=== PATIENT | male | born 1950 | race Caucasian/White ===

== ENCOUNTER 2017-09-15 20:17 | Observation (INO) ==
[2017-09-15] MEDS ORDERED: Levofloxacin 750 MG/150 ML 750 MG/150 ML BAG IVPB ONE (20:44)
--- NOTE | 2017-09-15 21:05 | Emergency Department Note ---
START Narrative - START START: I examined this patient and my medical decision-making was reviewed with the Resident Physician. I agree with the documented findings, disposition and treatment plan as described except to the extent set forth below. 66 year old male presents to the ED by PV from [facility] urgent care where they diagnsoed him with pnueoina and an initial pulse ox of 88% wiht a history of COPD without need for supplental oxygen. Patient is also flu (+) and has wheezes heard on exam. He is febrile on exam. WE will do lab work and breathing treatemnts and assess respiratroy status
[2017-09-15 21:16] LABS: Basophils % 0.2 %; Eosinophils % 0.2 %; Hematocrit 42.7 % (37.5-50.1); Hemoglobin 14.5 g/dL (12.9-16.9); Immature Granulocytes % 0.6 % (0-4); Lymphocytes # 1.2 K/mcL (0.6-4.6); Lymphocytes % 9.4 %; Mean Corpuscular Volume 85.4 fL (83.0-100.0); Mean Platelet Volume 10.4 fL (9.4-12.4); Monocytes # 1.2 K/mcL (0.0-1.3); Monocytes % 9.7 %; Neutrophils # 9.9 K/mcL (1.6-8.9); Platelet Count 129 K/mcL (140-400); Red Cell Distribution Width 13.8 % (11.5-14.5); Segmented Neutrophils % 79.9 %
--- NOTE | 2017-09-15 21:24 | Emergency Department Note ---
Disposition Clinical Impression: Hypoxemia, Hyponatremia Pneumonia Qualifiers: Pneumonia type: due to unspecified organism Laterality: left Lung location: lower lobe of lung Qualified Code(s): J18.1 - Lobar pneumonia, unspecified organism Disposition: Admitted As Inpatient Condition: Fair Time of Disposition: 23:34 SOB HPI - General Chief Complaint: ED Shortness of Breath/Dyspnea Stated Complaint: Pneumonia Time Seen by Provider: 09/15/17 20:27 Source: patient Limitations: no limitations Nursing Notes Reviewed: Yes Vital Signs Reviewed: Yes - History of Present Illness Patient is a 66-year-old male who presents to [facility] ED with a chief complaint of pneumonia. He was sent over by the urgent care with left lower lobe pneumonia. States he has been feeling weak and sick for the last 3 days. Past medical history significant for prostate cancer. Patient is a 40 year smoker. Denies any nausea, vomiting, fever or chills. He has felt hot at times. No chest pain, abdominal pain. He has had some discomfort with urination. No problems with bowel movements. Pt Subjective Complaint: shortness of breath, cough Onset (ago): day(s) Context: recent illness Severity: moderate Consistency/Duration: gradually worsening Improves with: nothing Worsens with: nothing Known history of: COPD Associated symptoms: Reports: fever, cough. Denies: chest pain, nausea/vomiting , abdominal pain Treatment prior to arrival: none - Related Data Home oxygen amount: none Home Medications Medication Instructions Recorded Confirmed Aspirin [Adult Low Dose Aspirin EC] 81 mg PO DAILY 05/25/15 09/15/17 Doxazosin Mesylate [Cardura Xl] 8 mg PO DAILY 05/25/15 09/15/17 Insulin ASPART [NovoLOG] 5 - 10 unit SQ TIDWM 05/25/15 09/15/17 Insulin DETEMIR [Levemir] 50 unit SQ DAILY 05/25/15 09/15/17 Omeprazole [PriLOSEC] 40 mg PO DAILY 05/25/15 09/15/17 Hydrochlorothiazide 50 mg PO DAILY 08/22/15 09/15/17 Losartan 25 mg PO DAILY 08/22/15 09/15/17 Fluticasone/Salmeterol [Advair 1 each IH DAILY 09/02/17 09/15/17 250-50 Diskus] Allergies Allergy/AdvReac Type Severity Reaction Status Date / Time No Known Allergies Allergy Verified 09/15/17 20:19 All systems ED: reviewed and negative except as stated. Past Medical History - Past Medical History Attestation: Yes The following information was validated with the patient. Source: patient Medical history: Reports: COPD, diabetes Surgical history: Reports: orthopedic, other, vasectomy Psychiatric history: Reports: no psych history - Social History Smoking Status: Former smoker Smokeless Tobacco Status: No Alcohol use: Reports: occasionally Drug use: Reports: none Physical Exam - General Limitations: no limitations General appearance: alert, in no apparent distress - Head Head exam: atraumatic, normocephalic, normal inspection - Eye Eye exam: Present: normal appearance, EOMI - ENT ENT exam: normal exam, normal oropharynx, mucous membranes moist - Neck Neck exam: Present: normal inspection, full ROM, trachea midline - Chest Chest inspection: Present: normal inspection, symmetric chest wall rise - Respiratory Respiratory exam: Present: other (decreased breath sounds b/l) - Cardiovascular Cardiovascular exam: Present: regular rate, normal rhythm, normal heart sounds - Abdominal Exam Abdominal exam: Present: soft, Non-Tender. Absent: tenderness, distention, guarding, rebound, rigidity - Extremities Exam Extremities exam: Present: normal inspection, full ROM. Absent: tenderness, pedal edema - Back Exam Back exam: Present: normal inspection, full ROM. Absent: tenderness - Neurological Exam Neurological exam: Present: alert, oriented X3 - Psychiatric Psychiatric exam: Present: normal affect, normal mood - Skin Skin exam: Present: warm, dry, intact, normal color Course Course Narrative: Patient seen and examined. Diagnosed with flu and pneumonia. We will start with on Levaquin. We will also get lab work and blood cultures. Patient was saturating 88% on room air when he arrived. Does not have any home oxygen. - Reevaluation(s) Reevaluation #1: Labwork shows mild leukocytosis. Examined Chest x-ray from the urgent care which shows left lower lobe pneumonia. I discussed with hospitalist who has accepted patient for admission. Time: 23:31 Vital Signs Temperature 100.5 F H 09/15/17 20:19 Pulse Rate 84 09/15/17 20:19 Respiratory Rate 22 09/15/17 20:19 Blood Pressure 157/78 09/15/17 20:19 O2 Sat by Pulse Oximetry 92 09/15/17 20:19 Temperature 100.5 F H 09/15/17 20:19 Pulse Rate 78 09/15/17 23:17 Respiratory Rate 20 09/15/17 23:17 Blood Pressure 148/81 09/15/17 23:17 O2 Sat by Pulse Oximetry 97 09/15/17 23:17 Oxygen Delivery Oxygen Delivery Room Air Shortness of Breath/Dyspnea - Medical Records Medical records reviewed: Yes I reviewed the patient's medical records. - Lab Data Lab results reviewed: Yes I reviewed the patient's lab results. Result diagrams: 09/15/17 21:00 09/15/17 21:00 Lab Results 09/15/17 09/15/17 09/15/17 Range/Units 21:00 21:00 21:00 WBC 12.4 H (4.3-11.1) K/mcL RBC 5.00 (4.19-5.50) M/mcL Hgb 14.5 (12.9-16.9) g/dL Hct 42.7 (37.5-50.1) % MCV 85.4 (83.0-100.0) fL MCH 29.0 (28.0-33.3) pg MCHC 34.0 (31.6-35.5) g/dL RDW 13.8 (11.5-14.5) % Plt Count 129 L (140-400) K/mcL MPV 10.4 (9.4-12.4) fL Immature Gran % 0.6 (0-4) % Seg Neutrophils % 79.9 % Lymphocytes % 9.4 % Monocytes % 9.7 % Eosinophils % 0.2 % Basophils % 0.2 % Neutrophils # 9.9 H (1.6-8.9) K/mcL Lymphocytes # 1.2 (0.6-4.6) K/mcL Monocytes # 1.2 (0.0-1.3) K/mcL Eosinophils # 0.0 (0.0-0.6) K/mcL Basophils # 0.0 (0.0-0.2) K/mcL Sodium 129 L (136-145) mEq/L Potassium 3.6 (3.5-5.1) mEq/L Chloride 94 L (98-107) mEq/L Carbon Dioxide 28 (23-29) mEq/L BUN 31 H (8-23) mg/dL Creatinine 1.22 (0.70-1.30) mg/dL Est GFR ( Amer) > 60 (> 60) Est GFR (Non-Af Amer) 59 L (> 60) BUN/Creatinine Ratio 25 (6-26) Glucose 193 H (70-105) mg/dL Calculated Osmolality 280 (280-300) Lactic Acid 1.2 (0.5-2.2) mmol/L Calcium 9.6 (8.6-10.3) mg/dL Troponin I (< 0.04) ng/mL B-Natriuretic Peptide (Less than 100) pg/mL Urine Color (Yellow) Urine Clarity (Clear) Urine pH (5.0-8.0) pH Units Ur Specific Randolph (1.010-1.025) Urine Protein (Neg-Trace) mg/dL Urine Glucose (UA) (Normal) mg/dL Urine Ketones (Negative) mg/dL Urine Blood (Negative) Urine Nitrite (Negative) Urine Bilirubin (Negative) Urine Urobilinogen (Normal) mg/dL Ur Leukocyte Esterase (Negative) Urine Microscopic RBC (0-3) per hpf Urine Microscopic WBC (0-3) per hpf Ur Squamous Epith Cells (None-Few) per lpf Ur Transition Epith Cell (None-Few) per hpf Ur Renal Epithelial Cell (None-Few) per hpf Urine Bacteria (None-Few) per hpf Hyaline Casts (None-Few) per lpf Urine Mucus (Few) Ur Culture Indicated? (NO) 09/15/17 09/15/17 09/15/17 Range/Units 21:00 21:00 21:15 WBC (4.3-11.1) K/mcL RBC (4.19-5.50) M/mcL Hgb (12.9-16.9) g/dL Hct (37.5-50.1) % MCV (83.0-100.0) fL MCH (28.0-33.3) pg MCHC (31.6-35.5) g/dL RDW (11.5-14.5) % Plt Count (140-400) K/mcL MPV (9.4-12.4) fL Immature Gran % (0-4) % Seg Neutrophils % % Lymphocytes % % Monocytes % % Eosinophils % % Basophils % % Neutrophils # (1.6-8.9) K/mcL Lymphocytes # (0.6-4.6) K/mcL Monocytes # (0.0-1.3) K/mcL Eosinophils # (0.0-0.6) K/mcL Basophils # (0.0-0.2) K/mcL Sodium (136-145) mEq/L Potassium (3.5-5.1) mEq/L Chloride (98-107) mEq/L Carbon Dioxide (23-29) mEq/L BUN (8-23) mg/dL Creatinine (0.70-1.30) mg/dL Est GFR ( Amer) (> 60) Est GFR (Non-Af Amer) (> 60) BUN/Creatinine Ratio (6-26) Glucose (70-105) mg/dL Calculated Osmolality (280-300) Lactic Acid (0.5-2.2) mmol/L Calcium (8.6-10.3) mg/dL Troponin I < 0.03 (< 0.04) ng/mL B-Natriuretic Peptide 28 (Less than 100) pg/mL Urine Color Dark Yellow (Yellow) Urine Clarity Slightly Hazy (Clear) Urine pH 6.0 (5.0-8.0) pH Units Ur Specific Randolph 1.028 H (1.010-1.025) Urine Protein 100 H (Neg-Trace) mg/dL Urine Glucose (UA) Normal (Normal) mg/dL Urine Ketones 15 H (Negative) mg/dL Urine Blood Moderate H (Negative) Urine Nitrite Negative (Negative) Urine Bilirubin Small H (Negative) Urine Urobilinogen Normal (Normal) mg/dL Ur Leukocyte Esterase Small H (Negative) Urine Microscopic RBC 15-30 H (0-3) per hpf Urine Microscopic WBC 30-50 H (0-3) per hpf Ur Squamous Epith Cells Many H (None-Few) per lpf Ur Transition Epith Cell Few (None-Few) per hpf Ur Renal Epithelial Cell Few (None-Few) per hpf Urine Bacteria None Seen (None-Few) per hpf Hyaline Casts None Seen (None-Few) per lpf Urine Mucus Moderate H (Few) Ur Culture Indicated? NO. (NO) - Radiology Data Radiology results reviewed: Yes I reviewed the patient's radiology results. - EKG Data EKG attestation: Yes I reviewed and interpreted this EKG. EKG results narrative: EKG done at 2054 shows normal sinus rhythm with a rate of [address] elevation or depression. Right bundle branch block present. Left axis deviation.
[2017-09-15 21:37] LABS: BUN/Creatinine Ratio 25 (6-26); Blood Urea Nitrogen 31 mg/dL (8-23); Calcium 9.6 mg/dL (8.6-10.3); Carbon Dioxide 28 mEq/L (23-29); Chloride 94 mEq/L (98-107); Glucose 193 mg/dL (70-105); Osmolality,Calculated 280 (280-300); Potassium 3.6 mEq/L (3.5-5.1); Sodium 129 mEq/L (136-145); eGFR For African Americans > 60 (> 60); eGFR For Non-African Americans 59 (> 60)
[2017-09-15 21:38] LABS: Bilirubin,Urine Small (Negative); Blood,Urine Moderate (Negative); Color,Urine Dark Yellow (Yellow); Glucose,Urine (UA) Normal (Normal); Ketones,Urine 15 mg/dL (Negative); Leukocyte Esterase,Urine Small (Negative); Nitrite,Urine Negative (Negative); Protein,Urine 100 mg/dL (Neg-Trace); Specific Gravity,Urine 1.028 (1.010-1.025); Urobilinogen,Urine Normal (Normal)
[2017-09-15 21:40] LABS: Bacteria,Urine None Seen per hpf (None-Few); Hyaline Casts,Urine None Seen per lpf (None-Few); RBC,Urine 15-30 per hpf (0-3); Squamous Epithelial Cell,Urine Many per lpf (None-Few); WBC,Urine 30-50 per hpf (0-3)
[2017-09-15 21:42] LABS: Clarity,Urine Slightly Hazy (Clear)
[2017-09-15] MEDS ORDERED: Ipratropium/Albuterol Neb 3 ML IH ONE (21:48)
[2017-09-15 21:58] LABS: Mucus,Urine Moderate (Few); Renal Epithelial Cells,Urine Few per hpf (None-Few); Transitional Epi Cells,Urine Few per hpf (None-Few)
[2017-09-16] MEDS ORDERED: Ibuprofen 600 MG TABLET PO PRN (00:34)
--- NOTE | 2017-09-16 01:58 | Internal Med History&Physical ---
<Melina Herrera - Last Filed: 09/16/17 06:38> Date of Encounter: 09/16/17 Time of Encounter: 01:00 Assessment and Plan (1) Pneumonia Current visit: Yes Status: Acute No signs of sepsis, afebrile, vital signs stable, and saturating 95% on 2L NC. Flu-like symptoms of fever, fatigue, myalgias, nonproductive cough, decreased appetite x3 days. CXR done at urgent care 09/15/17 airspace disease in LLL suspicious for PNA; no pulmonary edema or pleural effusions. Received a dose of Augmentin and Zithromax at urgent care; first dose of Levaquin given in ED. Increased risk for complications given h/o DM and COPD. No hospitalizations within last 90 days, no recent antibiotic use. Elevated WBC count @ 12.4. - Trend WBC count - Continue empiric Levaquin for now - Rapid influenza A/B ordered - Blood cultures sent - Sputum gram stain and culture ordered Qualifiers: Pneumonia type: due to unspecified organism Laterality: left Lung location: lower lobe of lung Qualified Code(s): J18.1 - Lobar pneumonia, unspecified organism (2) COPD (chronic obstructive pulmonary disease) Current visit: Yes Status: Chronic Known COPD hx. Not on home oxygen. Prescribed daily Advair at home; has not taken Advair in last 3 days. Currently on 2L supplemental oxygen NC with SpO2 95 %. No respiratory distress. Decreased lung sounds bilateral bases; no wheezing, rhonchi, or rales. Consider possibility of COPD exacerbation. - Symbicort daily - Duonebs PRN - Continue supplemental oxygen for now, plan to titrate off when pt begins to improve clinically Qualifiers: COPD type: unspecified COPD Qualified Code(s): J44.9 - Chronic obstructive pulmonary disease, unspecified (3) Hyponatremia Current visit: Yes Status: Acute Sodium 129 on admission. Suspect d/t poor appetite over last 3 days in combination with HCTZ he takes at home. - Diabetic diet ordered - Recheck level in morning - Hold HCTZ - Replace with PO sodium chloride tab (4) Diabetes mellitus Current visit: Yes Status: Chronic Known h/o DM on insulin therapy. Serum glucose elevated on arrival @ 192. - Low dose SSI - Diabetic diet - POC glucose checks ACHS Qualifiers: Diabetes mellitus type: type 2 Diabetes mellitus complication status: with hyperglycemia Diabetes mellitus rat exterminator insulin use: with custodial use Qualified Code(s): E11.65 - Type 2 diabetes mellitus with hyperglycemia; Z79.4 - longterm (current) use of insulin; Z79.4 - rat exterminator (current) use of insulin ; Z79.4 - longterm (current) use of insulin; Z79.4 - longterm (current) use of insulin (5) Hypoxemia Current visit: Yes Status: Resolved Saturating in low 90's on room air, dropping down to 88% before giving supplemental oxygen. Most likely influenced by h/o COPD, not using inhaler for several days, and acute respiratory illness. Resolved with 2L oxygen and been saturating around 95% since. - Titrate off supplemental oxygen when pt begins to improve clinically - Monitor pulse ox (6) Malignant neoplasm of prostate Current visit: Yes Status: Chronic Pt of Dr. Mcfarlane, last seen 09/02/17. Documentation of that visit states no signs of local recurrent or metastatic disease Completed prostate-only radiotherapy in 2013. Pt to follow up at cancer center in 9 months. (7) BPH (benign prostatic hyperplasia) Current visit: Yes Status: Chronic Takes doxazosin at home. Qualifiers: Lower urinary tract symptom presence: symptoms present Lower urinary tract symptom detail: nocturia Qualified Code(s): N40.1 - Benign prostatic hyperplasia with lower urinary tract symptoms; R35.1 - Nocturia; R35.1 - Nocturia (8) DVT prophylaxis Current visit: Yes Status: Acute Encourage ambulation. SubQ heparin 5,000 untis Q12H. No h/o DVT. Internal Medicine - H&P: HPI Chief complaint: Short of breath History of present illness: Mr. Ferguson is a 66 year old male who presented to the ED after visiting an urgent care on 09/15/17 for what he thought was sinusitis. He has felt sick and like he couldn't "get enough air" x 3 days. Admits to fever, but denies chills, diaphoresis, chest pain. At urgent care, he was told he had influenza and PNA. CXR was done at urgent care and LLL PNA was seen. He admits to nonproductive cough x3 days and a little bit of wheezing. He states he was given antibiotics while at urgent care and doesn't know the name. Pt denies sick contacts and had his flu shot this year. Pt also reports dark urine today and some burning discomfort with urination x1 day, he states discomfort with urination has resolved and denies pyuria or hematuria. Pt attributes his dark urine to his poor appetite since feeling sick, admits to nausea and denies emesis, abdominal pain, change in bowel movements, bloody stools. PMH includes COPD without home oxygen, DC, DM requiring insulin, and prostate cancer. PSH includes LHC approx 2000 (no stents or balloons), cervical spine surgery around 1999. In the ED, reportedly had SpO2 88% on arrival. Vital signs were significant for Tmax 100.5 F. Basic labwork shows leukocytosis 12.4, hyponatremia 129, and hypochloremia 94. UA showed urine specific gravity increased, no nitrites, small amount leukocyte esterase, moderate amount of mucus, no hyaline casts. He was given a dose of Levaquin and a duoneb treatment. Past Med Surg Social Fam HX - Past Medical History Medical history: COPD, diabetes Psychiatric history: no psych history - Past Surgical History Surgical History: orthopedic, other, vasectomy - Social History Smoking Status: Former smoker Smokeless Tobacco Status: No Alcohol use: occasionally Drug use: none - Family History Mother Living Status: Still Living Hx Family Cardiac Disorders: Yes (Pacer) Hx Family Endocrine Disorder: Yes (DM) Brother Living Status: Still Living Hx Family Cardiac Disorders: Yes (CABG) Internal Medicine - H&P: Meds Aspirin [Adult Low Dose Aspirin EC] 81 mg PO DAILY 05/25/15 [History] Doxazosin Mesylate [Cardura Xl] 8 mg PO DAILY 05/25/15 [History] Insulin ASPART [NovoLOG] 5 - 10 unit SQ TIDWM 05/25/15 [History] Insulin DETEMIR [Levemir] 45 - 50 unit SQ DAILY 05/25/15 [History] Omeprazole [PriLOSEC] 40 mg PO DAILY 05/25/15 [History] Losartan [Cozaar] 25 mg PO DAILY 08/22/15 [History] hydroCHLOROthiazide [Hydrochlorothiazide] 50 mg PO DAILY 08/22/15 [History] Fluticasone/Salmeterol [Advair 250-50 Diskus] 1 each IH DAILY 09/02/17 [History] 3 Allergy/AdvReac Type Severity Reaction Status Date / Time No Known Allergies Allergy Verified 09/15/17 20:19 All Systems PM: A 10-system review of systems was performed and is negative for pertinent findings except as documented above in the HPI. - Constitutional Constitutional: as per HPI - Cardiovascular Cardiovascular ROS IM: as per HPI - Respiratory Respiratory: as per HPI - Gastrointestinal Gastrointestinal: as per HPI - Genitourinary Genitourinary ROS male: as per HPI - Constitutional Vitals: Temp Pulse Resp BP Pulse Ox 99.4 F 77 18 138/74 95 09/15/17 23:45 09/15/17 23:45 09/15/17 23:45 09/15/17 23:45 09/15/17 23:45 General appearance: Present: A&O X 3, no acute distress, answers questions appropriately - Head Head exam: Present: atraumatic, normocephalic - Eye Eye exam: Present: EOMI, sclera anicteric - Neck Neck exam general surgery: Present: trachea midline - Respiratory Respiratory exam: Present: decreased breath sounds (bilateral bases), CTAB. Absent: accessory muscle use, rales, respiratory distress, rhonchi, stridor, wheezes - Cardiovascular Cardiovascular exam: Present: RRR, +S1, +S2. Absent: diastolic murmur, systolic murmur - GI/Abdominal GI/Abdominal exam: Present: normal bowel sounds, soft. Absent: tenderness - Extremities Exam Extremities exam: Present: warm. Absent: cyanotic, pedal edema Additional comments: DP pulses 2+ - Neurological Exam Neurological exam: Present: alert, oriented X3, no focal deficits Internal Med - H&P Results - Labs CBC & Chem 7: 09/16/17 04:24 09/16/17 04:24 <Quirino Daily T - Last Filed: 09/17/17 06:53> Date of Encounter: 09/17/17 Internal Medicine - H&P: HPI History of present illness: Mr. Ferguson is a 66 year old male All Systems PM: A 10-system review of systems was performed and is negative for pertinent findings except as documented above in the HPI. - Constitutional Vitals: Temp Pulse Resp BP Pulse Ox 97.8 F 58 14 147/78 96 09/17/17 03:52 09/17/17 03:52 09/17/17 03:52 09/17/17 03:52 09/17/17 03:52 Internal Med - H&P Results - Labs CBC & Chem 7: 09/17/17 04:05 09/17/17 04:05 Labs: Short CBC 09/17/17 Range/Units 04:05 WBC 4.4 D (4.3-11.1) K/mcL Hgb 11.8 L (12.9-16.9) g/dL Hct 34.3 L (37.5-50.1) % Plt Count 113 L (140-400) K/mcL Neutrophils # 2.1 (1.6-8.9) K/mcL BMP 09/17/17 04:05 Sodium 134 L Potassium 3.6 Chloride 101 Carbon Dioxide 26 BUN 18 Creatinine 0.86 Glucose 156 H Calcium 8.7 - Attending Attestation The patient was independently examined and available records reviewed. Agree with the resident's A&P
[2017-09-16] MEDS ORDERED: Naloxone 0.4 MG/ML INJ IVP PRN (02:08)
[2017-09-16] MEDS ORDERED: Ipratropium/Albuterol Neb 3 ML IH PRN (02:11)
[2017-09-16] MEDS ORDERED: Ondansetron 4 MG/2 ML VIAL IVP PRN (02:12)
[2017-09-16] MEDS ORDERED: Dextrose Gel 15 GM/37.5 ML TUBE PO PRN ×2 (02:26)
[2017-09-16] MEDS ORDERED: D5% in Water 1,000 ML IVC PRN (02:26)
[2017-09-16] MEDS ORDERED: *HR* Dextrose 50 % in Water (Syg) 50 ML SYRINGE IVP PRN (02:26)
[2017-09-16] MEDS: 0.9 % Sodium Chloride 1,000 ML IVC SCH ×2 (04:20→17:49)
[2017-09-16 05:36] LABS: BUN/Creatinine Ratio 30 (6-26); Blood Urea Nitrogen 34 mg/dL (8-23); Carbon Dioxide 25 mEq/L (23-29); Chloride 96 mEq/L (98-107); Glucose 176 mg/dL (70-105); Osmolality,Calculated 284 (280-300); Potassium 3.5 mEq/L (3.5-5.1); Sodium 131 mEq/L (136-145); eGFR For African Americans > 60 (> 60); eGFR For Non-African Americans > 60 (> 60)
[2017-09-16 05:48] LABS: Basophils % 0.1 %; Eosinophils % 0.1 %; Hematocrit 36.6 % (37.5-50.1); Hemoglobin 12.6 g/dL (12.9-16.9); Immature Granulocytes % 0.4 % (0-4); Lymphocytes # 1.5 K/mcL (0.6-4.6); Lymphocytes % 13.4 %; Mean Corpuscular HGB Conc 34.4 g/dL (31.6-35.5); Mean Corpuscular Volume 84.1 fL (83.0-100.0); Mean Platelet Volume 11.1 fL (9.4-12.4); Monocytes # 1.6 K/mcL (0.0-1.3); Monocytes % 13.9 %; Neutrophils # 8.2 K/mcL (1.6-8.9); Platelet Count 118 K/mcL (140-400); Red Blood Count 4.35 M/mcL (4.19-5.50); Red Cell Distribution Width 13.9 % (11.5-14.5); Segmented Neutrophils % 72.1 %
[2017-09-16] MEDS: Insulin LISPRO 300 UNITS/3 ML VIAL SQ SCH ×4 (08:33→20:15)
[2017-09-16] MEDS: Budesonide/Formoterol 80/4.5 MDI IH SCH (10:28)
--- NOTE | 2017-09-16 18:24 | Event Note ---
Date of Encounter: 09/16/17 Time of Encounter: 18:23 Admitted with cough shortness of breath and fever. X-ray done in urgent care and was consistent with infiltrate on the left lower lobe. Room air SaO2 was 90 -91%. He is on 2 L/m oxygen now. Today he is feeling much better. Cough is improving. Denies any chest pain. On Levaquin. Cultures are pending. Sodium has improved from 129-131. He is on IV fluid. Plan to continue. Overall clinically improving. Reassess his condition tomorrow regarding oxygenation, sodium level.
[2017-09-16] MEDS: Levofloxacin 750 MG/150 ML 750 MG/150 ML BAG IVPB SCH (20:19)
[2017-09-17 04:34] LABS: Basophils % 0.5 %; Eosinophils # 0.1 K/mcL (0.0-0.6); Eosinophils % 1.1 %; Hematocrit 34.3 % (37.5-50.1); Hemoglobin 11.8 g/dL (12.9-16.9); Immature Granulocytes % 0.7 % (0-4); Lymphocytes # 1.4 K/mcL (0.6-4.6); Mean Corpuscular HGB Conc 34.4 g/dL (31.6-35.5); Mean Corpuscular Hemoglobin 29.1 pg (28.0-33.3); Mean Corpuscular Volume 84.5 fL (83.0-100.0); Mean Platelet Volume 10.7 fL (9.4-12.4); Monocytes # 0.8 K/mcL (0.0-1.3); Monocytes % 18.3 %; Neutrophils # 2.1 K/mcL (1.6-8.9); Platelet Count 113 K/mcL (140-400); Red Blood Count 4.06 M/mcL (4.19-5.50); Red Cell Distribution Width 13.6 % (11.5-14.5); Segmented Neutrophils % 47.4 %
[2017-09-17 05:12] LABS: BUN/Creatinine Ratio 21 (6-26); Blood Urea Nitrogen 18 mg/dL (8-23); Calcium 8.7 mg/dL (8.6-10.3); Carbon Dioxide 26 mEq/L (23-29); Chloride 101 mEq/L (98-107); Glucose 156 mg/dL (70-105); Osmolality,Calculated 283 (280-300); Potassium 3.6 mEq/L (3.5-5.1); Sodium 134 mEq/L (136-145); eGFR For African Americans > 60 (> 60); eGFR For Non-African Americans > 60 (> 60)
[2017-09-17 05:22] LABS: Platelet Estimate Slight Decrease (Normal); Toxic Granulation Present (Not Present)
[2017-09-17] MEDS: Budesonide/Formoterol 80/4.5 MDI IH SCH (08:01)
[2017-09-17] MEDS: Insulin LISPRO 300 UNITS/3 ML VIAL SQ SCH ×4 (08:15→21:18)
--- NOTE | 2017-09-17 16:47 | Internal Med Progress Note ---
Date of Encounter: 09/17/17 Time of Encounter: 13:30 - Assessment and plan (1) COPD (chronic obstructive pulmonary disease) Current Visit: Yes Status: Chronic Assessment and plan: Chronic. Complicated by pneumonia. Patient did have faint wheezing in posterior bases today. IV Levaquin, DuoNeb's as scheduled, Symbicort. O2 as needed to maintain sats greater than 92%. Qualifiers: COPD type: unspecified COPD Qualified Code(s): J44.9 - Chronic obstructive pulmonary disease, unspecified (2) Hyponatremia Current Visit: Yes Status: Acute Assessment and plan: Resolving. Sodium 134 today. Check labs in the morning. (3) Malignant neoplasm of prostate Current Visit: Yes Status: Chronic Assessment and plan: Patient reports that he is admission. Patient also was seen by Dr. Mcfarlane, he was last seen on 09/02/2017. Review of documentation shows no signs of local recurrent or metastatic disease. He will need to follow up with the cancer center in 9 months. (4) Pneumonia Current Visit: Yes Status: Acute Assessment and plan: Patient presented to the emergency room with complaints of fever, fatigue, body aches, nonproductive cough, decreased appetite for 3 days. Flulike symptoms. Patient presented to urgent care on 12/13/17 that showed airspace disease in LLL that was suspicious for pneumonia. Patient received a dose of Augmentin and Zithromax in urgent care, he was then sent to the emergency department where he was given Levaquin. Pneumonia complicated by COPD. He has had no hospitalizations in the last 90 days and no recent antibiotic use. Mild leukocytosis noted on admission, it has resolved. No signs of sepsis at this time. He is requiring supplemental oxygen to maintain his sats above 92%. Continue IV Levaquin, DuoNeb nebs, Symbicort. Continue to monitor. Qualifiers: Pneumonia type: due to unspecified organism Laterality: left Lung location: lower lobe of lung Qualified Code(s): J18.1 - Lobar pneumonia, unspecified organism (5) DVT prophylaxis Current Visit: Yes Status: Acute Assessment and plan: NHUNG dietz ordered, low risk, encourage ambulation. - Time Spent With Patient less than 15 minutes - Subjective Interval history: Patient was seen and evaluated bedside at 1330. He is alert, awake, oriented, able to answer questions. Patient denies, O2 and states he did not get a pneumonia vaccine this year. Patient denies nausea or vomiting, no diarrhea. He denies any abdominal pain or chest pain. He reports shortness of breath on exertion over the last week or so. Denies blurred vision, no neck pain, no nausea, vomiting, diarrhea. - Constitutional Vitals: Temp Pulse Resp BP Pulse Ox 97.3 F L 60 16 145/83 97 09/17/17 15:51 09/17/17 15:51 09/17/17 15:51 09/17/17 15:51 09/17/17 15:51 General appearance: Present: cooperative, A&O X 3, pleasant, no acute distress, answers questions appropriately - Head Head exam: Present: atraumatic, normal inspection, normocephalic - Eye Eye exam: Present: normal appearance, conjuntiva pink, sclera anicteric - Neck Neck exam general surgery: Present: supple, trachea midline. Absent: lymphadenopathy, tenderness - Respiratory Respiratory exam: Present: CTAB, wheezes. Absent: accessory muscle use, chest wall tenderness, rales, respiratory distress, rhonchi - Cardiovascular Cardiovascular exam: Present: RRR, +S1, +S2. Absent: diastolic murmur, gallop, rubs, systolic murmur - GI/Abdominal GI/Abdominal exam: Present: normal bowel sounds, soft. Absent: distended, hepatomegaly, tenderness - Extremities Exam Extremities exam: Present: normal capillary refill, normal inspection, warm, radial pulses palpable and symmetrical. Absent: calf tenderness, cyanotic, pedal edema, tenderness - Neurological Exam Neurological exam: Present: alert, oriented X3, no focal deficits. Absent: facial droop, speech deficit - Skin Skin exam: Present: dry, intact, normal color, warm. Absent: rash Internal Medicine: Result - Labs CBC & Chem 7: 09/17/17 04:05 09/17/17 04:05 Labs: Short CBC 09/17/17 Range/Units 04:05 WBC 4.4 D (4.3-11.1) K/mcL Hgb 11.8 L (12.9-16.9) g/dL Hct 34.3 L (37.5-50.1) % Plt Count 113 L (140-400) K/mcL Neutrophils # 2.1 (1.6-8.9) K/mcL BMP 09/17/17 04:05 Sodium 134 L Potassium 3.6 Chloride 101 Carbon Dioxide 26 BUN 18 Creatinine 0.86 Glucose 156 H Calcium 8.7 Consult Discharge Plan - Plan Referrals: Carlos Nielson CNP [Primary Care Provider] -
--- NOTE | 2017-09-17 18:38 | Electrocardiograph Report ---
[place] [id number] Test Date: 2017-09-15 Pat Name: Eligio Ferguson Department: 104 Room: 3B Gender: M [employer] Consultant: : 1950 Requested By: Mary Kate Luong Order Number: [id number] Reading MD: Gee Herrera Measurements Intervals [place] Rate: 79 P: 33 AK: 121 QRS: -38 QRSD: 133 T: -7 QT: 379 QTc: 413 Interpretive Statements SINUS RHYTHM MARKED LEFT AXIS DEVIATION INTRAVENTRICULAR CONDUCTION DELAY Electronically Signed On 09-17-2017 18:37:20 EST by Gee Herrera
[2017-09-17] MEDS: 0.9 % Sodium Chloride 1,000 ML IVC SCH (21:17)
[2017-09-17] MEDS: Levofloxacin 750 MG/150 ML 750 MG/150 ML BAG IVPB SCH (21:17)
[2017-09-18] MEDS: Budesonide/Formoterol 80/4.5 MDI IH SCH (08:33)
[2017-09-18] MEDS: Insulin LISPRO 300 UNITS/3 ML VIAL SQ SCH (08:55)
[2017-09-18] MEDS ORDERED: hydroCHLOROthiazide 25 MG TABLET PO SCH (09:00)
[2017-09-18] MEDS ORDERED: Aspirin Enteric Coated 81 MG Tablet PO SCH (09:00)
--- NOTE | 2017-09-18 10:33 | Discharge Summary ---
- NOTES TO OUTPATIENT PROVIDER Notes to Outpatient Provider: Pt was treated with 3 days of Levaquin IV in the hospital, 750mg po x 7 days after discharge. Date of Encounter: 09/18/17 Time of Encounter: 09:00 - Discharge Diagnosis (1) COPD (chronic obstructive pulmonary disease) Priority: Primary Status: Chronic Comments: Chronic. Complicated by pneumonia. Lungs clear and diminshed today. IV Levaquin, DuoNeb's as scheduled, Symbicort. Will continue po Levaquin x 7 days. Pt was weaned from 02 and has no needs at home. Qualifiers: COPD type: unspecified COPD Qualified Code(s): J44.9 - Chronic obstructive pulmonary disease, unspecified (2) Hyponatremia Priority: Secondary Status: Resolved Comments: REsolved. (3) Malignant neoplasm of prostate Priority: Secondary Status: Chronic Comments: Patient reports that he is in remission. Patient also was seen by Dr. Mcfarlane, he was last seen on 09/02/2017. Review of documentation shows no signs of local recurrent or metastatic disease. He will need to follow up with the cancer center in 9 months. (4) Pneumonia Priority: Secondary Status: Acute Comments: Patient presented to the emergency room with complaints of fever, fatigue, body aches, nonproductive cough, decreased appetite for 3 days. Flulike symptoms. Patient presented to urgent care on 12/13/17 that showed airspace disease in LLL that was suspicious for pneumonia. Patient received a dose of Augmentin and Zithromax in urgent care, he was then sent to the emergency department where he was given Levaquin 750mg IV. Pneumonia complicated by COPD. He has had no hospitalizations in the last 90 days and no recent antibiotic use. Mild leukocytosis noted on admission, it has resolved. No signs of sepsis. NO 02 requirements. Continue home medications and will get rx for Levaquin 750mg po x 7 days. Appointment with PCP Aislinn 09/24 @ 1000. Qualifiers: Pneumonia type: due to unspecified organism Laterality: left Lung location: lower lobe of lung Qualified Code(s): J18.1 - Lobar pneumonia, unspecified organism (5) DVT prophylaxis Priority: Secondary Status: Acute Comments: NHUNG dietz ordered, low risk, encouraged ambulation. Hospital course: Mr. Ferguson is a 66 year old male with past medical history prostate cancer, DVT , COPD. Patient presented to the emergency department for flulike symptoms and fatigue. He was diagnosed with community-acquired bacterial pneumonia. Treated with Levaquin 750 mg as well as during naps. His vitals remained stable throughout. His mild leukocytosis on admission that resolved. He has no supplemental oxygen demands at discharge. She will be given a prescription for Levaquin 750 mg by mouth daily for 7 days and has an appointment scheduled with primary care for one week. Patient states that he feels significantly better, labs and vitals are stable and within normal limits. Physical exam is unremarkable. Patient is stable and appropriate for discharge. Discharge discussed with: patient - Time Spent with Patient Total time spent providing and/or coordinating discharge services: - Discharge Medications Prescriptions: levoFLOXacin [Levaquin] 750 mg PO DAILY #7 tablet Home Medications: Aspirin [Adult Low Dose Aspirin EC] 81 mg PO DAILY 05/25/15 [History] Doxazosin Mesylate [Cardura Xl] 8 mg PO DAILY 05/25/15 [History] Insulin ASPART [NovoLOG] 5 - 10 unit SQ TIDWM 05/25/15 [History] Insulin DETEMIR [Levemir] 45 - 50 unit SQ DAILY 05/25/15 [History] Omeprazole [PriLOSEC] 40 mg PO DAILY 05/25/15 [History] Losartan [Cozaar] 25 mg PO DAILY 08/22/15 [History] hydroCHLOROthiazide [Hydrochlorothiazide] 50 mg PO DAILY 08/22/15 [History] Fluticasone/Salmeterol [Advair 250-50 Diskus] 1 each IH DAILY 09/02/17 [History] Insulin LISPRO [HumaLOG] 0 units SQ HS vial 09/18/17 [Rx] Insulin LISPRO [HumaLOG] 0 units SQ TIDAC vial 09/18/17 [Rx] levoFLOXacin [Levaquin] 750 mg PO DAILY #7 tablet 09/18/17 [Rx] Allergies/Adverse Reactions: 3 Allergy/AdvReac Type Severity Reaction Status Date / Time No Known Allergies Allergy Verified 09/15/17 20:19 Date of admission: 09/16/17 15:34 Primary care physician: Carlos Nielson CNP Discharging clinician: Magnolia Borden Anticipated date of discharge: 09/18/17 - Constitutional Vitals: Temp Pulse Resp BP Pulse Ox 97.9 F 46 16 170/74 96 09/18/17 07:51 09/18/17 07:51 09/18/17 08:34 09/18/17 07:51 09/18/17 08:34 General appearance: Present: cooperative, A&O X 3, pleasant, no acute distress, answers questions appropriately - Head Head exam: Present: atraumatic, normal inspection, normocephalic - Eye Eye exam: Present: normal appearance, conjuntiva pink, sclera anicteric - Neck Neck exam general surgery: Present: normal inspection, supple, trachea midline. Absent: lymphadenopathy, tenderness - Respiratory Respiratory exam: Present: decreased breath sounds, CTAB. Absent: accessory muscle use, chest wall tenderness, rales, respiratory distress, rhonchi, wheezes - Cardiovascular Cardiovascular exam: Present: RRR, +S1, +S2. Absent: diastolic murmur, gallop, rubs, systolic murmur - GI/Abdominal GI/Abdominal exam: Present: normal bowel sounds, soft. Absent: distended, hepatomegaly, tenderness - Extremities Exam Extremities exam: Present: normal capillary refill, normal inspection, warm, radial pulses palpable and symmetrical. Absent: calf tenderness, cyanotic, pedal edema, tenderness - Neurological Exam Neurological exam: Present: alert, oriented X3, no focal deficits. Absent: facial droop, speech deficit - Skin Skin exam: Present: dry, intact, normal color, warm. Absent: rash - Patient Status Disposition: Home, Self-Care Condition: Good Functional capacity at discharge: independent ambulation Overall status at discharge: patient is progressing back to baseline - Discharge Instructions Follow Up With: Carlos Nielson CNP [Primary Care Provider] - 09/24/17 10:00 am Additional Instructions: Please follow up with your PCP as scheduled. Take your medications as directed. Return to the ER as needed for any other problems or concerns, or if your symptoms return or worsen. Take your normal medications and return to your normal diet and activities. - Diet and Activity Activity: increase activity as tolerated Diet: advance to your usual diet
[2017-09-18 11:30] VITALS: BP 147/60
== END 2017-09-18 12:28 | disposition home or self-care (01) | DRG 190 ==
LOC: 3BNU 20:17 → EMEROO 20:17 → 3BNU 23:30
PROVIDERS: ADMIT Internal Medicine; ATTEND Registered Nurse